=== PATIENT | female | born 1950 | race Caucasian/White ===

== ENCOUNTER 2023-12-30 08:06 | Emergency (ER) | payer OTHER, MEDICARE ==
[~2023-12-30] VITALS: Ht 162.6 cm; Wt 84.1 kg
[2023-12-30] MEDS ORDERED: LIDOCAINE/RACEPINEP/TETRACAINE 3 ML SYR TOP ONE (08:30)
[2023-12-30] MEDS ORDERED: GLIPIZIDE ER10 MG PO (09:10)
[2023-12-30] MEDS ORDERED: GABAPENTIN300 MG PO (09:10)
[2023-12-30] MEDS ORDERED: METFORMIN HCL1000 MG PO (09:10)
[2023-12-30] MEDS ORDERED: ATORVASTATIN CA20 MG PO (09:11)
[2023-12-30] MEDS ORDERED: LISINOPRIL20 MG PO (09:11)
[2023-12-30 09:59] VITALS: BP 175/81
== END 2023-12-30 10:01 | disposition home or self-care (01) ==
LOC: ED 08:06
DX: S01.81XA Laceration without foreign body of other part of head, initial encounter (principal); W01.0XXA Fall on same level from slipping, tripping and stumbling without subsequent striking against object, initial encounter; Z79.84 Long term (current) use of oral hypoglycemic drugs; Z79.899 Other long term (current) drug therapy
CPT/HCPCS: 12013; 70450; 70486; 72125; 99283-25